=== PATIENT | female | born 2000 | race Caucasian/White ===

== ENCOUNTER 2019-09-28 16:18 | Outpatient (REF) | payer OTHER, SELFPAY ==
--- NOTE | 2019-09-28 15:10 | PAPFT_PTH ---
PATIENT: Becca Neal LOC: [facility] U#:[id number] AGE/SX: 19/F ROOM: RE09/28/[address]: Penelope Do DO : 2000 BED: DIS: 09/28/2019 SPEC #: [id number] RECD: 09/28/19 17:14 STATUS: ROMI REQ #: [id number] CARMEL: 09/28/19 15:[address]: Penelope Do DEPT: PENDING SALE TO [facility] Cytology RECD BY: Patricia Ayon Tissues: 1 - CX/ENDOCX FOR PAP SMEARS Procedures: PAP THIN PREP/[facility] Screening Comments: [id number] (CHLAMYDIA/GC)
[2019-09-29 15:07] LABS: Chlamydia Result Negative (Negative); GC Result Negative (Negative)
== END 2019-09-28 16:38 ==
LOC: LBN 16:18
PROVIDERS: Visit Provider Obstetrics & Gynecology
DX: Z11.3 Encounter for screening for infections with a predominantly sexual mode of transmission (principal); Z12.4 Encounter for screening for malignant neoplasm of cervix
CPT/HCPCS: 87491; 87591; 88142

== ENCOUNTER 2020-06-26 01:53 | Outpatient (CLI) | payer MEDICAID, SELFPAY ==
--- NOTE | 2020-06-26 07:15 | DI.US_ITS ---
Exam(s) US PELVIS EXAM: US PELVIS CLINICAL HISTORY: Recheck ovarian cyst,Z87.42 TECHNIQUE: Ultrasound performed using standard protocol. COMPARISON: No exams were available for comparison FINDINGS: Pelvic ultrasound was performed transabdominally only at the patient's request. Uterus measures 6.73 .3 x 4.8 cm, endometrial stripe appears fairly homogeneous and is 2-3 millimeters in thickness. Righ t ovary measures 19 x 11 x 10 millimeters and left ovary measures 26 x 19 x 8 millimeters. No ovaria n cyst or mass is identified on today's examination by transabdominal criteria. Limited scanning of the kidneys is unremarkable. No free fluid in the cul-de-sac. IMPRESSION: Transabdominal scanning only at the patient's request, negative pelvic ultrasound. DATA REPOSITORY:
== END 2020-06-26 02:13 ==
PROVIDERS: PCP Nurse Practitioner; Visit Provider Obstetrics & Gynecology
DX: R10.2 Pelvic and perineal pain (principal); Z87.42 Personal history of other diseases of the female genital tract
CPT/HCPCS: 76856

== ENCOUNTER 2020-07-17 11:32 | Outpatient (REF) | payer MEDICAID, SELFPAY ==
[2020-07-18 15:13] LABS: Chlamydia Result Negative (Negative); GC Result Negative (Negative)
== END 2020-07-17 11:33 | disposition home or self-care (01) ==
LOC: LBN 11:32
PROVIDERS: PCP Nurse Practitioner; Visit Provider Obstetrics & Gynecology
DX: Z11.3 Encounter for screening for infections with a predominantly sexual mode of transmission (principal); N89.8 Other specified noninflammatory disorders of vagina
CPT/HCPCS: 87491; 87591; 87480; 87510; 87660